=== PATIENT | female | born 1985 ===

== ENCOUNTER 2016-07-30 03:45 | Inpatient (IN) ==
[2016-07-30] MEDS ORDERED: MEPERIDINE 50 MG/1 ML VIAL IV PRN (04:31)
[2016-07-30] MEDS ORDERED: LACTATED RINGERS 500 ML IV PRN (04:31)
[2016-07-30] MEDS ORDERED: ONDANSETRON 4 MG/2 ML VIAL IV PRN (04:31)
[2016-07-30] MEDS: LACTATED RINGERS 1,000 ML IV SCH ×3 (04:47→21:22)
[2016-07-30 06:45] LABS: Basophils % 0.1 % (0.0-0.8); Eosinophils # 0.4 10*3/uL (0.0-0.87); Eosinophils % 4.3 % (0.00-10.9); Hematocrit 31.8 VOL% (35.7-47.0); Hemoglobin 9.9 GM/DL (12.0-16.0); Immature Granulocytes % 1.4 %; Immature Granulocytes Absolute 0.14 #; Lymphocytes # 1.9 10*3/uL (1.4-4.0); Lymphocytes % 18.5 % (21.3-54.2); Mean Corpuscular HGB Conc 31.1 GM/DL (32-36); Mean Corpuscular Hemoglobin 26 PG (27-34); Mean Corpuscular Volume 84.6 FL (87-102); Mean Platelet Volume 9.8 FL (9.6-12.0); Monocytes # 0.7 10*3/uL (0.11-0.8); Monocytes % 6.9 % (1.7-12.7); Neutrophils # 7.1 10*3/uL (1.4-7.4); Neutrophils % 68.8 % (38.7-73.9); Platelet Count 293 T/CUMM (130-400); Red Blood Count 3.76 MC/CUMM (3.8-5.5); Red Cell Distribution Width 13.7 % (9.3-17.3); White Blood Count 10.2 T/CUMM (4-12)
[2016-07-30] MEDS: CLINDAMYCIN INJ 900 MG in PREMIX 1 EACH IV SCH ×3 (07:34→19:30)
[2016-07-30] MEDS ORDERED: BETAMETH SODIUM PHOS/ACETATE 30 MG/5 ML VIAL IM ONE (08:15)
--- NOTE | 2016-07-30 09:33 | Ultrasound Report ---
US follow up OB sonogram Indication: Check position and KRYSTA. Comparison: OB ultrasound 06/20/2016. Technique: Using transabdominal probe, multiple grayscale, color Doppler, and M-mode Doppler images of the fetus were captured and stored. Findings: Single cephalic fetus with heart rate of 135 bpm has amniotic fluid index of 9.57 cm. The cervix as measured is 3.8 cm in length. The endocervical canal was not clearly demonstrated. Impression: 1. Normal amniotic fluid index. Cephalic fetus. 07/30/2016 9:30 AM PROCEDURE INTERPRETED AT [facility] DEPARTMENT OF RADIOLOGY Final Report Signed by: Dr. Faustino Rogel
[2016-07-31] MEDS: CLINDAMYCIN INJ 900 MG in PREMIX 1 EACH IV SCH ×2 (01:13→08:31)
[2016-07-31] MEDS: LACTATED RINGERS 1,000 ML IV SCH (06:42)
[2016-07-31 08:40] LABS: Basophils % 0.2 % (0.0-0.8); Eosinophils % 0.4 % (0.00-10.9); Hematocrit 30.9 VOL% (35.7-47.0); Hemoglobin 9.9 GM/DL (12.0-16.0); Immature Granulocytes % 1.6 %; Immature Granulocytes Absolute 0.18 #; Lymphocytes # 1.7 10*3/uL (1.4-4.0); Lymphocytes % 15.1 % (21.3-54.2); Mean Corpuscular Hemoglobin 27 PG (27-34); Mean Corpuscular Volume 82.6 FL (87-102); Mean Platelet Volume 9.6 FL (9.6-12.0); Monocytes # 0.7 10*3/uL (0.11-0.8); Monocytes % 6.3 % (1.7-12.7); Neutrophils # 8.6 10*3/uL (1.4-7.4); Neutrophils % 76.4 % (38.7-73.9); Platelet Count 312 T/CUMM (130-400); Red Blood Count 3.74 MC/CUMM (3.8-5.5); Red Cell Distribution Width 13.8 % (9.3-17.3); White Blood Count 11.2 T/CUMM (4-12)
[2016-07-31] MEDS ORDERED: BETAMETH SODIUM PHOS/ACETATE 30 MG/5 ML VIAL IM SCH (09:00)
--- NOTE | 2016-07-31 09:21 | Ultrasound Report ---
US follow up OB sonogram Date: 07/31/2016 7:58 AM Indication: Premature rupture membranes, prematurity Comparison: 30 July 2016 Findings: Single intrauterine gestation is seen in breech presentation.. Placenta is in posterior position and appears within normal limits. measurements estimate gestational age at 29 weeks 3 days Estimated weight: 1365 g Amniotic fluid index: 9.8 centimeters but appears diminished overall Cervical length: 3.8 cm heart rate: 160 bpm Impression: Single intrauterine gestation as above. Oligohydramnios. PROCEDURE INTERPRETED AT [facility] DEPARTMENT OF RADIOLOGY Final Report Signed by: Dr. Chris Napier
--- NOTE | 2016-07-31 10:16 | OB/GYN Progress Note ---
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 Patient denies any further leakage of fluid. Exam URBAN ANTHROPOLOGIST - Constitutional Vitals: Vital Signs Temp Pulse Resp BP Pulse Ox 07/31/16 10:04 97.4 F L 07/31/16 08:00 98.2 F 78 20 113/55 99 07/31/16 03:56 97.2 F L 72 17 98/53 07/30/16 23:25 98.1 F 75 17 103/58 07/30/16 19:57 98 F 85 17 119/64 98 07/30/16 12:00 97.0 F L General appearance: no acute distress - Head Head exam: Present: normal inspection - Respiratory Respiratory exam: Present: clear to auscultation bilaterally - Cardiovascular Cardiovascular exam: Present: regular rate and rhythm - GI/Abdominal GI/Abdominal exam: Present: normal bowel sounds, soft - Extremities Exam Extremities exam: Present: normal inspection - Neurological Exam Neurological exam: Present: alert, oriented X3 - Psychiatric Psychiatric exam: Present: normal affect, normal mood - Skin Skin exam: Present: normal color, warm Results - Labs CBC & BMP: 07/31/16 08:23
[2016-07-31] MEDS: FERROUS SULFATE 325 MG TABLET PO SCH (22:06)
[2016-08-01] MEDS: FERROUS SULFATE 325 MG TABLET PO SCH (00:22)
[2016-08-01 10:09] LABS: Basophils % 0.1 % (0.0-0.8); Eosinophils % 0.1 % (0.00-10.9); Hematocrit 33.9 VOL% (35.7-47.0); Hemoglobin 10.8 GM/DL (12.0-16.0); Immature Granulocytes % 1.1 %; Immature Granulocytes Absolute 0.18 #; Lymphocytes # 1.5 10*3/uL (1.4-4.0); Lymphocytes % 9.5 % (21.3-54.2); Mean Corpuscular HGB Conc 31.9 GM/DL (32-36); Mean Corpuscular Hemoglobin 27 PG (27-34); Mean Corpuscular Volume 84.1 FL (87-102); Mean Platelet Volume 9.5 FL (9.6-12.0); Monocytes # 0.8 10*3/uL (0.11-0.8); Monocytes % 4.9 % (1.7-12.7); Neutrophils # 13.5 10*3/uL (1.4-7.4); Neutrophils % 84.3 % (38.7-73.9); Platelet Count 296 T/CUMM (130-400); Red Blood Count 4.03 MC/CUMM (3.8-5.5); Red Cell Distribution Width 13.6 % (9.3-17.3)
[2016-08-01 10:24] LABS: INR 0.9; PT Patient Result 9.3 SECS; Partial Thromboplastin Time 26.4 SECS (0-40)
[2016-08-01] MEDS ORDERED: ACETAMINOPHEN 500 MG TABLET PO PRN (10:48)
[2016-08-01] MEDS ORDERED: CLINDAMYCIN INJ 900 MG in PREMIX 1 EACH IV SCH (11:00)
--- NOTE | 2016-08-01 11:09 | Progress Note ---
Family Medicine PN Sub Interval history: Day #2 status post ruptured membranes, initial ultrasound demonstrated vertex presentation with a decrease in amniotic fluid. A repeat ultrasound demonstrated breech presentation. This is this a.m. this patient noted to have fever chills and increasing pelvic pain and also discomfort. In light of these findings CBC was obtained which her white count is greater than 16 and her temperature is above 101. She was given Tylenol antibiotics was initiated a repeat ultrasound will be obtained and this patient will be prepared for delivery. At this point time where there will be a primary section or vaginal is unknown. Exam (Progress Note) - Constitutional Vitals: Period Temp Pulse Resp BP Sys/Law Pulse Ox Last 24 Hr 96.9 F-101.8 F 74-98 16-18 108-118/50-74 Results - Labs CBC & BMP: 08/01/16 10:03
--- NOTE | 2016-08-01 11:37 | Ultrasound Report ---
Exam: US OB limited Date: 08/01/2016 10:58 AM Comparison: 07/31/2016 Indication: position Technique:[Multiple transabdominal real-time scans were obtained. Color flow scans obtained. Ultrasound images were captured and stored.] Findings: There is a single intrauterine fetus in the cephalic presentation with a heart rate 199-203 BPM. Posterior placenta is not low lying in position with cervical length of 27 mm. KRYSTA 85.7 mm. Maternal ovaries are identified. No detailed survey scans were obtained. No scans were obtained for dating purposes. Impression: Single intrauterine fetus in cephalic presentation. tachycardia with shortened cervical length of 27 mm. PROCEDURE INTERPRETED AT [facility] DEPARTMENT OF RADIOLOGY Final Report Signed by: Dr. Heike Cuellar
[2016-08-01] MEDS ORDERED: OXYTOCIN 10 UNIT/ML VIAL ONE ×2 (11:41→12:02)
[2016-08-01] MEDS ORDERED: OXYTOCIN/LR 30 UNIT/1,000 ML BAG IV ONE (11:43)
[2016-08-01] MEDS ORDERED: FAMOTIDINE 20 MG/2 ML VIAL IV ONE (11:45)
[2016-08-01] MEDS ORDERED: LACTATED RINGERS 1,000 ML IV ONE (11:45)
[2016-08-01] MEDS ORDERED: CITRIC ACID/SODIUM CITRATE 30 ML UDCUP PO ONE (11:45)
[2016-08-01] MEDS ORDERED: ONDANSETRON 4 MG/2 ML VIAL ONE (12:10)
--- NOTE | 2016-08-01 13:17 | Anesthesia Post-Op ---
Anesthesia Post OP - Post Ansesthetic Evaluation Patient seen in post op: No Resp: within normal limits CV: within normal limits Mental: within normal limits Temp: within normal limits [id number]: within normal limits Nausea and Vomiting: within normal limits Pain: within normal limits
[2016-08-01] MEDS ORDERED: fentaNYL 100 MCG/2 ML VIAL ONE (13:19)
[2016-08-01] MEDS ORDERED: MORPHINE 10 MG/10 ML VIAL ONE (13:20)
[2016-08-01] MEDS ORDERED: MIDAZOLAM 2 MG/2 ML VIAL ONE (13:20)
[2016-08-01] MEDS ORDERED: HYDROmorphone 2 MG/1 ML VIAL ONE (13:40)
[2016-08-01] MEDS ORDERED: HYDROmorphone 2 MG/1 ML VIAL IV SCH (13:50)
[2016-08-01 13:59] LABS: Apearance,Urine CLEAR (Clear); Bilirubin,Urine Negative (Negative); Blood, Urine Negative (Negative); Glucose,Urine (UA) Negative (Negative); Ketones,Urine Negative (Negative); Nitrite,Urine Negative (Negative); Protein,Urine Negative; RBC,Urine <1 /HPF (0-4); Squamous Epithelial Cell,Urine Occasional /HPF (0-10); Urine Color Straw (Yellow); Urine Urobilinogen < 2.0 EU/DL (0.2-1.0); WBC,Urine <1 /HPF (0-6)
[2016-08-01] MEDS ORDERED: OXYTOCIN/LR 20 UNIT/1,000 ML BAG IV ONE (14:07)
[2016-08-01] MEDS ORDERED: ACETAMINOPHEN 325 MG TABLET PO PRN (14:07)
[2016-08-01] MEDS ORDERED: RHO(D) IMMUNE GLOBULIN 300 MCG SYRINGE IM ONE (14:07)
[2016-08-01] MEDS ORDERED: ONDANSETRON 4 MG/2 ML VIAL IV PRN (14:07)
[2016-08-01] MEDS ORDERED: LACTATED RINGERS 1,000 ML IV SCH ×2 (14:30)
[2016-08-01] MEDS: CLINDAMYCIN INJ 900 MG in PREMIX 1 EACH IV SCH ×2 (19:40→20:00)
[2016-08-01] MEDS: IBUPROFEN 800 MG TABLET PO PRN (19:43)
[2016-08-01 23:04] LABS: Basophils % 0.2 % (0.0-0.8); Eosinophils # 0.1 10*3/uL (0.0-0.87); Eosinophils % 0.3 % (0.00-10.9); Hematocrit 32.1 VOL% (35.7-47.0); Hemoglobin 10.1 GM/DL (12.0-16.0); Immature Granulocytes % 1.3 %; Immature Granulocytes Absolute 0.25 #; Lymphocytes # 0.8 10*3/uL (1.4-4.0); Lymphocytes % 4.4 % (21.3-54.2); Mean Corpuscular HGB Conc 31.5 GM/DL (32-36); Mean Corpuscular Hemoglobin 26 PG (27-34); Mean Corpuscular Volume 83.6 FL (87-102); Mean Platelet Volume 9.6 FL (9.6-12.0); Monocytes # 0.7 10*3/uL (0.11-0.8); Monocytes % 3.6 % (1.7-12.7); NRBC # 0.02 10*3/uL; Neutrophils # 17.2 10*3/uL (1.4-7.4); Neutrophils % 90.2 % (38.7-73.9); Platelet Count 280 T/CUMM (130-400); Red Blood Count 3.84 MC/CUMM (3.8-5.5); Red Cell Distribution Width 13.9 % (9.3-17.3); White Blood Count 19.1 T/CUMM (4-12)
[2016-08-01] MEDS: DOCUSATE SODIUM 100 MG CAPSULE PO SCH (23:25)
[2016-08-02 00:08] LABS: Band Neutrophils 2 % (0-10); Lymphocytes 3 % (20-55); Metamyelocytes 1 %; Platelet Estimate Normal; Segmented Neutrophils 89 % (50-85); Total Cells Counted 100
[2016-08-02] MEDS: CLINDAMYCIN INJ 900 MG in PREMIX 1 EACH IV SCH ×3 (03:59→20:14)
[2016-08-02 05:49] LABS: Basophils % 0.1 % (0.0-0.8); Eosinophils # 0.2 10*3/uL (0.0-0.87); Hematocrit 28.6 VOL% (35.7-47.0); Hemoglobin 9.1 GM/DL (12.0-16.0); Immature Granulocytes % 1.1 %; Immature Granulocytes Absolute 0.17 #; Lymphocytes # 0.6 10*3/uL (1.4-4.0); Lymphocytes % 3.9 % (21.3-54.2); Mean Corpuscular HGB Conc 31.8 GM/DL (32-36); Mean Corpuscular Hemoglobin 27 PG (27-34); Mean Corpuscular Volume 83.1 FL (87-102); Mean Platelet Volume 9.5 FL (9.6-12.0); Monocytes # 0.8 10*3/uL (0.11-0.8); Monocytes % 5.2 % (1.7-12.7); NRBC # 0.02 10*3/uL; Neutrophils # 13.6 10*3/uL (1.4-7.4); Neutrophils % 88.7 % (38.7-73.9); Platelet Count 239 T/CUMM (130-400); Red Blood Count 3.44 MC/CUMM (3.8-5.5); Red Cell Distribution Width 14.3 % (9.3-17.3); White Blood Count 15.3 T/CUMM (4-12)
[2016-08-02 06:40] LABS: Acanthocytes Few; Anisocytosis 1+; Band Neutrophils 3 % (0-10); Hypochromasia 2+; Lymphocytes 4 % (20-55); Macrocytosis 1+; Platelet Estimate Normal; Segmented Neutrophils 88 % (50-85); Total Cells Counted 100
[2016-08-02] MEDS: DOCUSATE SODIUM 100 MG CAPSULE PO SCH ×2 (09:00→20:14)
[2016-08-02] MEDS: MAGNESIUM HYDROXIDE SUSP 30 ML UDCUP PO PRN ×2 (09:00→20:14)
[2016-08-02] MEDS: MULTIVITAMIN (PRENATAL) TABLET PO SCH (09:00)
[2016-08-02] MEDS: SIMETHICONE CHEW 80 MG TABLET PO PRN ×2 (09:00→20:15)
[2016-08-02] MEDS: FERROUS SULFATE 325 MG TABLET PO SCH (20:14)
[2016-08-02] MEDS: IBUPROFEN 800 MG TABLET PO PRN (20:15)
[2016-08-03] MEDS: CLINDAMYCIN INJ 900 MG in PREMIX 1 EACH IV SCH ×2 (03:44→11:35)
[2016-08-03] MEDS: IBUPROFEN 800 MG TABLET PO PRN ×2 (03:47→12:29)
[2016-08-03 07:53] VITALS: BP 105/52
[2016-08-03] MEDS: FERROUS SULFATE 325 MG TABLET PO SCH (08:55)
[2016-08-03] MEDS: MULTIVITAMIN (PRENATAL) TABLET PO SCH (08:55)
[2016-08-03] MEDS: SIMETHICONE CHEW 80 MG TABLET PO PRN (08:55)
[2016-08-03] MEDS: DOCUSATE SODIUM 100 MG CAPSULE PO SCH (08:55)
[2016-08-03] MEDS: MAGNESIUM HYDROXIDE SUSP 30 ML UDCUP PO PRN (08:55)
--- NOTE | 2016-08-03 11:13 | Discharge Summary ---
Hospital Course - Hospital Course Hospital Course: Status post section Prematurity, premature rupture membranes at 21 weeks, bedrest for 7 weeks and subsequently rupture of membranes. Patient remained in the hospital approximately 48 hours. She subsequently spiked a temperature and was immediately prepared for a section. Infant was delivered 3 pounds and 1/2 pounds was taken to the nursery by the associate professor of history. After a short period of stabilization as patient became sepsis and subsequently . The mother is doing well physically, emotionally she is a distraught. Physical exam lungs clear, cardiac exam benign, abdomen soft, incision sites intact Extremities well with no limits neurologic grossly intact. This patient will be discharged and follow my office in approximately 2 weeks. Specialty Discharge - Follow Up or Referrals Follow up with: Deloris Wynne MD [Physician] - Discharge Plan - Discharge Data Condition at Discharge: Stable Discharge Diet: advance to your usual diet Activity: resume usual activities as tolerated Hygiene: may shower Driving: not until seen by doctor Contact your physician if you experience:: fever over 101, Shortness of breath, Bleeding - Discharge Medications New Ferrous Sulfate Tab [Feosol Original Tab] 325 mg PO BID #60 tablet HYDROcodone/ACETAMIN 5-325 [Mcbain 5-325] 1 tablet PO Q4H PRN #30 tablet PRN Reason: Pain Moderate (4-7) Ibuprofen Tab [Motrin Tab] 800 mg PO Q8H PRN #30 tablet PRN Reason: Pain Severe (8-10) No Action Vit No.124/Iron/Folic [ Vitamin Tablet] 1 tablet PO DAILY Acetaminophen Tab [Tylenol Tab] 325 mg PO Q6H diphenhydrAMINE CAP [Benadryl Cap] 25 mg PO Q6H - Follow Up or Referral Follow Up: Deloris Wynne MD [Physician] - - Forms/Instructions Instructions: Section (DC), Surgical Site Infections (GEN), Bleeding (DC) Exam - Constitutional Vitals: Period Temp Pulse Resp BP Sys/Law Pulse Ox Last 24 Hr 97.0 F-98.4 F 70-101 16-22 94-114/49-74 95-97 Discharge Results Procedures and tests throughout hospitalization: Pending Orders 08/01/16 Anaerobic Culture Stat Anaerobic Culture Stat Wound Culture Stat 08/04/16 04:00 Comp Blood Count Auto Diff IN AM Labs on day of discharge: Preliminary micro results at discharge 08/01/16 Unknown Wound Culture - Preliminary Placenta - Maternal Gram Negative Rods DS: Provider Date of admission: 07/30/16 04:31 Primary care physician: Jacob Swann MD Attending physician on admission: Deloris Wynne MD Consults: 07/30/16 04:31 Consult to Anesthesiology [CONS] Routine Consulting Provider: Reason for Anesthesiology: Epidural Consult Comment: Epidural for pain managment 07/30/16 04:33 Consult to Dietitian [CONS] Routine Reason for Dietitian: Diet Recommendations 08/01/16 14:07 Consult to Inspector [employer]iconductor Wafer [CONS] Routine Consult Inspector [employer]iconductor Wafer: Breast Feeding 08/01/16 14:18 Consult to Anesthesiology [CONS] Routine Consulting Provider: Reason for Anesthesiology: Pre-op Clearance Discharging clinician: Deloris Wynne MD
--- NOTE | 2016-08-05 11:47 | Pathology Report from [facility] ---
ACCESSION # : [id number] PATIENT NAME : M[place] Hills ORDERING DR : NIA BORRERO MD CLINICAL HX: PPROM 28 wks gestation, primary C/S POST-OP DX: Same SPECIMEN INFO: Placenta GROSS DESCRIPTION: Received fresh labeled "[place] & PLACENTA" is a 262 gm placenta measuring 15.6 x 10.2 x 2.4 cm. The membranes are pink juarez and opaque. The umbilical cord is centrally inserted, contains three vessels and is 14.5 cm. The surface is blue mars and circumarginate. The maternal surface is hemorrhagic with multiple disrupted cotyledons and some adherent clotted blood present. Scattered fibrinous areas are present. No gross abnormalities upon sectioning. Sections submitted A- membranes and cord, B- and maternal surfaces. DIAGNOSIS FOR [place]: PLACENTA, MEMBRANES, UMBILICAL CORD: Focal placental infarction with dystrophic calcification, mild intervillous blood. Tri -vessel umbilical cord. Membranes with acute chorioamnionitis. SERVICE DATE: 08/04/2016 REPORT DATE: 08/05/2016 PATHOLOGIST: Lou Wolf
== END 2016-08-03 13:18 | disposition home or self-care (01) | DRG 765 ==
LOC: N.LDOUT 03:45 → N.LD 03:47 → N.OB 08-02 00:15
PROVIDERS: ADMIT Obstetrics & Gynecology; ATTEND Obstetrics & Gynecology
PROC: LDCSECT (ICD-10-PCS; 2016-08-01 11:30)